=== PATIENT | female | born 1995 | race Caucasian/White ===

== ENCOUNTER 2022-03-22 07:34 | Inpatient (IN) ==
[2022-03-22] MEDS ORDERED: FLUARIX QUADRIVALENT 0.5 ML SYR IM ONE (08:02)
[2022-03-22] MEDS ORDERED: OXYTOCIN 30 UNITS/500 ML BAG IV PRN ×2 (08:05)
[2022-03-22] MEDS ORDERED: LIDOCAINE 1% LOCAL 20 ML VIAL INFIL PRN (08:05)
--- NOTE | 2022-03-22 08:26 | Labor Progress Brief Note ---
Date of Service March 22, 2022 Subjective Patient arrives for IOL as scheduled. 26yo (happens to be a MS3) w/ SIUP @ 40w4d, kinney placed last night. No OB c/o this morning. Plans for epidural. c/b placental lee, chart reviewed, EFW noted. Assessment & Plan (1) Encounter for induction of labor: Plan: Pitocin ordered, GBS neg, COVID swab sent. Epidural on request. Will AROM when appropriate. All questions answered of pt and FOB. Admission and Anticipated Discharge Date Admission Date: March 22, 2022 Physical Exam Genitourinary: FHT Cat [address] quiet vs artifact / without pattern Cvx /-2 Kinney came out with gentle tug, was likely in vaginal vault already. Results & Data ([facility]) Vital Signs (Past 12 Hours) Vital Signs Temp Pulse Resp BP 03/22/22 07:54 97.3 F L 94 H 16 111/69 Coding Level of Care Code None Diagnoses Encounter for induction of labor Z34.90
[2022-03-22] MEDS: LACTATED RINGER'S 1,000 ML IV PRN ×3 (08:30→19:57)
[2022-03-22 08:40] LABS: Hematocrit (blood only) 36.6 % (34.1-44.9); Mean Corpuscular Hgb Conc 35.5 g/dL (32.0-36.0); Mean Corpuscular Volume 90.1 fL (80.0-100.0); Mean Platelet Volume 11.6 fL (9.4-12.3); Platelet Count 154 K/uL (130-400); RDW Coefficient of Variation 12.2 % (11.5-14.5); RDW Standard Deviation 39.8 fL (36.4-46.3); Red Blood Count 4.06 M/uL (3.93-5.22)
[2022-03-22] MEDS ORDERED: fentaNYL citrate 100 MCG/2 ML VIAL ONE (14:15)
[2022-03-22] MEDS ORDERED: ePHEDrine sulfate 50 MG/ML AMP ONE (14:15)
[2022-03-22] MEDS ORDERED: BUPIVACAINE 0.25% 30 ML VIAL ONE (14:16)
[2022-03-22] MEDS ORDERED: LIDOCAINE 2%/EPINEPHRINE 1:200,000 20 ML SDV ONE (14:16)
[2022-03-22] MEDS ORDERED: SODIUM CHLORIDE 0.9% INJ 10 ML VIAL ONE (14:16)
[2022-03-22] MEDS ORDERED: fentaNYL 2MCG/ML ROPIVACAINE 1.25MG/ML 100 ML BAG EPI ONE (14:16)
--- NOTE | 2022-03-22 15:26 | Anesthesiology Consultation ---
Date of Service March 22, 2022 Assessment & Plan ASA ASA2 Proposed Anesthesia Anesthesia Type: Labor Epidural Risk / Benefits Reviewed With: PT / POA / Parent / Guardian, Accepts Plan and Informed Consent Obtained History Height/Weight Height: 5 ft 7 in Weight: 86.183 kg Allergies Allergy/AdvReac Type Severity Reaction Status Date / Time No Known Allergies Allergy Verified 03/19/22 09:11 Medications Home Medications Medication Instructions Recorded Confirmed Last Taken prenat.vits,martínez,[id number]-[id number] 1 tab PO DAILY 10/29/21 03/22/22 03/22/22 breast pump #1 ea 02/12/22 03/19/22 Unknown Breast Pump #1 ea 02/18/22 03/19/22 Unknown Active Medications Generic Name Dose Route Start Last Admin Trade Name Freq PRN Reason Stop Dose Admin Lactated Ringer's 1,000 mls @ 125 mls/hr 03/22/22 08:05 03/22/22 15:30 Lr IV 03/24/22 08:04 999 mls/hr .Q8H PRN Administration L&D Protocol Protocol Oxytocin 30 units in 500 mls @ 13 mls/hr 03/22/22 08:05 03/22/22 14:50 Pitocin IV 03/24/22 08:04 0.78 units/hr .Q24H PRN 13 mls/hr Labor Induction/Augmentation Titration Protocol 0.78 UNITS/HR Ropivacaine 100 ml 03/22/22 15:27 03/22/22 16:01 Fentanyl 2mcg/Ml Ropivacaine 1.25mg/Ml 100 Ml Bag EPI 03/23/22 15:26 100 ml PRN PRN Administration Pain R/T Labor Protocol Exercise / Class Metabolic Activity II 4-5 Yardwork/Stairs/Walk up hill Past Family History Family History (Updated 10/29/21 @ 17:01 by Vivian Jaramillo) Father Hemochromatosis Grandfather (Paternal) Cardiac arrest Past Surgical History Surgical History H/O foot surgery left foot surgery x 2 S/P tonsillectomy Past Anesthesia History No Hx of Anesthesia Complications and No Family Hx of Anesthesia Complications History of PONV No Hx of PONV and No Hx of Motion Sickness Social History Smoking Status: Never smoker Do You Dip or Chew Tobacco: No Hx Alcohol Use: No Hx Substance Use: No substance use type: does not use Review of Systems denies fever/cough/ colds/ chest pain/ SOB/ EDGAR denies EDGAR Physical Exam Vital Signs Last Vital Signs Temp 36.4 C L 03/22/22 14:26 Pulse 84 03/22/22 16:29 Resp 18 03/22/22 14:26 BP 112/67 03/22/22 16:29 Pulse Ox 94 03/22/22 16:29 ENMT Mouth: no TMJ abnormality and no dentition abnormality Thyromental Distance: > or= 3.5 Finger Breadths Mallampati Class: II Neck neck extension not limited Respiratory normal respiratory effort; no respiratory distress Auscultation: lungs clear to auscultation bilaterally Cardiovascular Rate/Rhythm: regular rate and regular rhythm Neurologic moves all extremities Psychiatric Orientation: alert and oriented x 3 Testing Laboratory Results 03/22/22 08:17
[2022-03-22] MEDS ORDERED: ePHEDrine sulfate 50 MG/ML AMP IV PRN (15:27)
[2022-03-22] MEDS ORDERED: diphenhydrAMINE 50 MG/ML VIAL IV PRN (15:27)
[2022-03-22] MEDS ORDERED: ONDANSETRON INJ 2 MG/ML 2 ML VIAL IV PRN (15:27)
[2022-03-22] MEDS ORDERED: NALOXONE HCL 0.4 MG/1 ML VIAL/CARP IV PRN (15:27)
[2022-03-22] MEDS ORDERED: NALBUPHINE HCL INJ 10 MG/ML AMP IV PRN (15:27)
[2022-03-22] MEDS ORDERED: NALOXONE HCL 1 MG in SODIUM CHLORIDE 0.9% 1000ML 1,000 ML IV PRN (15:27)
[2022-03-22] MEDS: fentaNYL 2MCG/ML ROPIVACAINE 1.25MG/ML 100 ML BAG EPI PRN ×2 (16:01→23:10)
--- NOTE | 2022-03-22 20:38 | Labor Progress Brief Note ---
Date of Service IUPC placed earlier as Pitocin was at 19 milliunits/min cervix is now 5 cm contractions are adequate per [place] units over 200 [place] units per 10 minutes progress has been slow but heart rate is category 1 and so we will continue to induce labor Assessment & Plan Admission and Anticipated Discharge Date Admission Date: March 22, 2022 Results & Data ([facility]) Vital Signs (Past 12 Hours) Vital Signs Temp Pulse Resp BP Pulse Ox 03/22/22 20:34 97 03/22/22 20:34 78 03/22/22 20:29 95 03/22/22 20:29 77 03/22/22 20:24 98 03/22/22 20:24 76 03/22/22 20:19 99 03/22/22 20:19 76 03/22/22 20:14 97 03/22/22 20:14 77 03/22/22 20:09 97 03/22/22 20:09 70 03/22/22 20:04 99 03/22/22 20:04 73 03/22/22 20:04 97/55 L 03/22/22 19:59 97 03/22/22 19:59 72 03/22/22 19:54 98 03/22/22 19:54 65 03/22/22 19:49 100 03/22/22 19:49 66 03/22/22 19:47 62 03/22/22 19:47 100/64 03/22/22 19:44 100 03/22/22 19:44 76 03/22/22 19:39 100 03/22/22 19:39 64 03/22/22 19:34 100 03/22/22 19:34 80 03/22/22 19:32 65 03/22/22 19:32 104/66 03/22/22 19:29 99 03/22/22 19:29 67 03/22/22 19:24 99 03/22/22 19:24 74 03/22/22 19:00 18 03/22/22 19:00 98.1 F 18 03/22/22 19:19 93 03/22/22 19:19 65 03/22/22 19:18 92 03/22/22 19:18 78 03/22/22 19:17 73 03/22/22 19:17 107/70 03/22/22 19:14 99 03/22/22 19:14 78 03/22/22 19:09 89 L 03/22/22 19:09 76 03/22/22 19:04 86 L 03/22/22 19:04 65 03/22/22 19:03 64 03/22/22 19:03 104/63 03/22/22 18:59 98 03/22/22 18:59 64 03/22/22 18:56 91 03/22/22 18:56 81 03/22/22 18:54 99 03/22/22 18:54 64 03/22/22 18:54 102/62 03/22/22 18:49 99 03/22/22 18:49 62 03/22/22 18:44 95 03/22/22 18:44 81 03/22/22 18:39 97 03/22/22 18:40 94 03/22/22 18:39 98 H 03/22/22 18:40 83 03/22/22 18:34 99 03/22/22 18:34 81 03/22/22 18:31 80 03/22/22 18:31 102/66 03/22/22 18:29 99 03/22/22 18:29 68 03/22/22 18:24 99 03/22/22 18:24 70 03/22/22 18:19 97 03/22/22 18:19 72 03/22/22 18:18 65 03/22/22 18:18 82/54 L 03/22/22 18:14 98 03/22/22 18:14 89 03/22/22 18:09 91 03/22/22 18:09 91 H 03/22/22 18:04 96 03/22/22 18:04 65 03/22/22 18:02 81 03/22/22 18:02 94/63 L 03/22/22 17:59 96 03/22/22 17:59 66 03/22/22 17:54 96 03/22/22 17:54 70 03/22/22 17:49 97 03/22/22 17:49 84 03/22/22 17:47 78 03/22/22 17:47 92/57 L 03/22/22 17:44 96 03/22/22 17:44 72 03/22/22 17:39 96 03/22/22 17:39 68 03/22/22 17:34 98 03/22/22 17:34 79 03/22/22 17:32 86 03/22/22 17:32 93/59 L 03/22/22 17:29 96 03/22/22 17:29 91 H 03/22/22 17:24 96 03/22/22 17:24 94 H 03/22/22 17:19 96 03/22/22 17:19 73 03/22/22 17:17 78 03/22/22 17:17 92/52 L 03/22/22 17:14 95 03/22/22 17:14 93 H 03/22/22 17:12 83 03/22/22 17:12 106/63 03/22/22 17:09 96 03/22/22 17:09 82 03/22/22 17:04 99 03/22/22 17:04 86 03/22/22 16:59 97 03/22/22 16:59 100 H 03/22/22 16:56 94 03/22/22 16:56 85 03/22/22 16:54 96 03/22/22 16:54 98 H 03/22/22 16:49 97 03/22/22 16:49 96 H 03/22/22 16:45 85 03/22/22 16:45 109/57 L 03/22/22 16:44 97 03/22/22 16:44 85 03/22/22 16:39 96 03/22/22 16:39 82 03/22/22 16:40 81 03/22/22 16:40 109/71 03/22/22 16:36 92 03/22/22 16:36 85 03/22/22 16:34 98 03/22/22 16:34 80 03/22/22 16:34 78 03/22/22 16:34 106/71 03/22/22 16:29 94 03/22/22 16:29 84 03/22/22 16:29 112/67 03/22/22 16:24 96 03/22/22 16:24 79 03/22/22 16:25 82 03/22/22 16:25 110/70 03/22/22 16:19 97 03/22/22 16:19 79 03/22/22 16:19 103/65 03/22/22 16:14 98 03/22/22 16:14 84 03/22/22 16:14 105/66 03/22/22 16:09 100 03/22/22 16:09 86 03/22/22 16:08 78 03/22/22 16:08 111/65 03/22/22 16:07 93 03/22/22 16:07 89 03/22/22 16:04 100 03/22/22 16:04 81 03/22/22 16:03 90 03/22/22 16:03 109/61 03/22/22 16:02 84 03/22/22 16:02 116/67 03/22/22 15:59 100 03/22/22 15:59 74 03/22/22 15:59 99/56 L 03/22/22 15:58 88 03/22/22 15:58 99/65 L 03/22/22 15:52 100 03/22/22 15:52 76 03/22/22 15:51 91 03/22/22 15:51 77 03/22/22 15:51 114/70 03/22/22 15:49 92 H 03/22/22 15:49 116/73 03/22/22 15:47 90 03/22/22 15:47 118/74 03/22/22 15:46 100 03/22/22 15:46 79 03/22/22 15:45 95 H 03/22/22 15:45 120/75 03/22/22 15:42 94 03/22/22 15:42 102 H 03/22/22 15:41 96 03/22/22 15:41 88 03/22/22 14:26 93 H 03/22/22 14:26 97.5 F L 18 108/61 03/22/22 12:50 95 H 03/22/22 12:50 97.3 F L 16 100/69 03/22/22 09:46 77 03/22/22 09:46 91/55 L Coding Level of Care Code None
--- NOTE | 2022-03-23 00:15 | Labor Progress Brief Note ---
Date of Service March 23, 2022 Cervix is sensitive still with same at most 5 cm perhaps somewhat thinner and softer her contractions are adequate with an IUPC her [place] units and a 10- minute session are 270 her heart rate is category 1 I did review with the patient and her that there has been very slow progress and somewhat concerned for the possibility of failure to progress at this stage he would still like to proceed as the baby is healthy and she agrees I did offer a at this stage but I think it is very safe to continue at this stage continue with induction of labor with Pitocin using the IUPC regarding we will reassess the patient in a few hours Assessment & Plan Admission and Anticipated Discharge Date Admission Date: March 22, 2022 Results & Data ([facility]) Vital Signs (Past 12 Hours) Vital Signs Temp Pulse Resp BP Pulse Ox 03/23/22 00:09 115 H 95 03/23/22 00:04 76 98 03/23/22 00:02 111 H 83/53 L 03/22/22 23:59 96 03/22/22 23:59 104 H 03/22/22 23:54 95 03/22/22 23:54 71 03/22/22 23:49 97 03/22/22 23:49 72 03/22/22 23:48 82 03/22/22 23:48 87/49 L 03/22/22 23:45 85 L 03/22/22 23:45 111 H 03/22/22 23:44 96 03/22/22 23:44 84 03/22/22 23:39 96 03/22/22 23:39 74 03/22/22 23:34 97 03/22/22 23:34 75 03/22/22 23:33 70 03/22/22 23:33 105/57 L 03/22/22 23:29 98 03/22/22 23:29 77 03/22/22 23:24 98 03/22/22 23:24 84 03/22/22 23:19 96 03/22/22 23:19 68 03/22/22 23:17 76 03/22/22 23:17 103/61 03/22/22 23:14 97 03/22/22 23:14 72 03/22/22 23:09 98 03/22/22 23:09 75 10/03/22 23:04 97 03/22/22 23:04 85 03/22/22 23:00 18 03/22/22 23:00 99.0 F 18 03/22/22 23:02 77 03/22/22 23:02 103/60 03/22/22 22:59 98 03/22/22 22:59 82 03/22/22 22:54 96 03/22/22 22:54 70 03/22/22 22:49 96 03/22/22 22:49 74 03/22/22 22:44 99 03/22/22 22:44 80 03/22/22 22:39 97 03/22/22 22:39 75 03/22/22 22:34 98 03/22/22 22:34 78 03/22/22 22:29 96 03/22/22 22:29 79 03/22/22 22:24 95 03/22/22 22:24 76 03/22/22 22:19 98 03/22/22 22:19 81 03/22/22 22:17 75 03/22/22 22:17 92/61 L 03/22/22 22:14 97 03/22/22 22:14 69 03/22/22 22:09 98 03/22/22 22:09 82 03/22/22 22:06 75 03/22/22 22:06 106/65 03/22/22 22:04 99 03/22/22 22:04 104 H 03/22/22 21:59 98 03/22/22 21:59 71 03/22/22 21:54 99 03/22/22 21:54 84 03/22/22 19:30 18 03/22/22 19:30 18 03/22/22 20:00 18 03/22/22 20:00 18 03/22/22 20:30 18 03/22/22 20:30 18 03/22/22 21:49 97 03/22/22 21:49 82 03/22/22 21:00 18 03/22/22 21:00 18 03/22/22 21:44 95 03/22/22 21:44 80 03/22/22 21:39 95 03/22/22 21:39 92 H 03/22/22 21:30 18 03/22/22 21:30 98.4 F 18 03/22/22 21:34 97 03/22/22 21:34 83 03/22/22 21:32 88 03/22/22 21:32 88/50 L 03/22/22 21:29 97 03/22/22 21:29 94 H 03/22/22 21:24 99 03/22/22 21:24 69 03/22/22 21:19 99 03/22/22 21:19 71 03/22/22 21:18 71 03/22/22 21:18 104/61 03/22/22 21:14 100 03/22/22 21:14 73 03/22/22 21:09 100 03/22/22 21:09 70 03/22/22 21:04 99 03/22/22 21:04 82 03/22/22 21:02 81 03/22/22 21:02 110/69 03/22/22 20:59 99 03/22/22 20:59 81 03/22/22 20:54 100 03/22/22 20:54 72 03/22/22 20:49 96 03/22/22 20:49 85 03/22/22 20:44 97 03/22/22 20:44 76 03/22/22 20:43 88 L 03/22/22 20:43 84 03/22/22 20:39 100 03/22/22 20:39 89 03/22/22 20:34 97 03/22/22 20:34 78 03/22/22 20:29 95 03/22/22 20:29 77 03/22/22 20:24 98 03/22/22 20:24 76 03/22/22 20:19 99 03/22/22 20:19 76 03/22/22 20:14 97 03/22/22 20:14 77 03/22/22 20:09 97 03/22/22 20:09 70 03/22/22 20:04 99 03/22/22 20:04 73 03/22/22 20:04 97/55 L 03/22/22 19:59 97 03/22/22 19:59 72 03/22/22 19:54 98 03/22/22 19:54 65 03/22/22 19:49 100 03/22/22 19:49 66 03/22/22 19:47 62 03/22/22 19:47 100/64 03/22/22 19:44 100 03/22/22 19:44 76 03/22/22 19:39 100 03/22/22 19:39 64 03/22/22 19:34 100 03/22/22 19:34 80 03/22/22 19:32 65 03/22/22 19:32 104/66 03/22/22 19:29 99 03/22/22 19:29 67 03/22/22 19:24 99 03/22/22 19:24 74 03/22/22 19:00 18 03/22/22 19:00 98.1 F 18 03/22/22 19:19 93 03/22/22 19:19 65 03/22/22 19:18 92 03/22/22 19:18 78 03/22/22 19:17 73 03/22/22 19:17 107/70 03/22/22 19:14 99 03/22/22 19:14 78 03/22/22 19:09 89 L 03/22/22 19:09 76 03/22/22 19:04 86 L 03/22/22 19:04 65 03/22/22 19:03 64 03/22/22 19:03 104/63 03/22/22 18:59 98 03/22/22 18:59 64 03/22/22 18:56 91 03/22/22 18:56 81 03/22/22 18:54 99 03/22/22 18:54 64 03/22/22 18:54 102/62 03/22/22 18:49 99 03/22/22 18:49 62 03/22/22 18:44 95 03/22/22 18:44 81 03/22/22 18:39 97 03/22/22 18:40 94 03/22/22 18:39 98 H 03/22/22 18:40 83 03/22/22 18:34 99 03/22/22 18:34 81 03/22/22 18:31 80 03/22/22 18:31 102/66 03/22/22 18:29 99 03/22/22 18:29 68 03/22/22 18:24 99 03/22/22 18:24 70 03/22/22 18:19 97 03/22/22 18:19 72 03/22/22 18:18 65 03/22/22 18:18 82/54 L 03/22/22 18:14 98 03/22/22 18:14 89 03/22/22 18:09 91 03/22/22 18:09 91 H 03/22/22 18:04 96 03/22/22 18:04 65 03/22/22 18:02 81 03/22/22 18:02 94/63 L 03/22/22 17:59 96 03/22/22 17:59 66 03/22/22 17:54 96 03/22/22 17:54 70 03/22/22 17:49 97 03/22/22 17:49 84 03/22/22 17:47 78 03/22/22 17:47 92/57 L 03/22/22 17:44 96 03/22/22 17:44 72 03/22/22 17:39 96 03/22/22 17:39 68 03/22/22 17:34 98 03/22/22 17:34 79 03/22/22 17:32 86 03/22/22 17:32 93/59 L 03/22/22 17:29 96 03/22/22 17:29 91 H 03/22/22 17:24 96 03/22/22 17:24 94 H 03/22/22 17:19 96 03/22/22 17:19 73 03/22/22 17:17 78 03/22/22 17:17 92/52 L 03/22/22 17:14 95 03/22/22 17:14 93 H 03/22/22 17:12 83 03/22/22 17:12 106/63 03/22/22 17:09 96 03/22/22 17:09 82 03/22/22 17:04 99 03/22/22 17:04 86 03/22/22 16:59 97 03/22/22 16:59 100 H 03/22/22 16:56 94 03/22/22 16:56 85 03/22/22 16:54 96 03/22/22 16:54 98 H 03/22/22 16:49 97 03/22/22 16:49 96 H 03/22/22 16:45 85 03/22/22 16:45 109/57 L 03/22/22 16:44 97 03/22/22 16:44 85 03/22/22 16:39 96 03/22/22 16:39 82 03/22/22 16:40 81 03/22/22 16:40 109/71 03/22/22 16:36 92 03/22/22 16:36 85 03/22/22 16:34 98 03/22/22 16:34 80 03/22/22 16:34 78 03/22/22 16:34 106/71 03/22/22 16:29 94 03/22/22 16:29 84 03/22/22 16:29 112/67 03/22/22 16:24 96 03/22/22 16:24 79 03/22/22 16:25 82 03/22/22 16:25 110/70 03/22/22 16:19 97 03/22/22 16:19 79 03/22/22 16:19 103/65 03/22/22 16:14 98 03/22/22 16:14 84 03/22/22 16:14 105/66 03/22/22 16:09 100 03/22/22 16:09 86 03/22/22 16:08 78 03/22/22 16:08 111/65 03/22/22 16:07 93 03/22/22 16:07 89 03/22/22 16:04 100 03/22/22 16:04 81 03/22/22 16:03 90 03/22/22 16:03 109/61 03/22/22 16:02 84 03/22/22 16:02 116/67 03/22/22 15:59 100 03/22/22 15:59 74 03/22/22 15:59 99/56 L 03/22/22 15:58 88 03/22/22 15:58 99/65 L 03/22/22 15:52 100 03/22/22 15:52 76 03/22/22 15:51 91 03/22/22 15:51 77 03/22/22 15:51 114/70 03/22/22 15:49 92 H 03/22/22 15:49 116/73 03/22/22 15:47 90 03/22/22 15:47 118/74 03/22/22 15:46 100 03/22/22 15:46 79 03/22/22 15:45 95 H 03/22/22 15:45 120/75 03/22/22 15:42 94 03/22/22 15:42 102 H 03/22/22 15:41 96 03/22/22 15:41 88 03/22/22 14:26 93 H 03/22/22 14:26 97.5 F L 18 108/61 03/22/22 12:50 95 H 03/22/22 12:50 97.3 F L 16 100/69 Coding Level of Care Code None
[2022-03-23] MEDS ORDERED: NURSING L&D Epidural Breakthrough Pain Update ONE (01:54)
[2022-03-23] MEDS ORDERED: ROPIVACAINE 0.5% 5 MG/ML 30 ML VIAL ONE (02:05)
[2022-03-23] MEDS ORDERED: LIDOCAINE 2%/EPINEPHRINE 1:200,000 20 ML SDV ONE (02:05)
[2022-03-23] MEDS ORDERED: fentaNYL citrate 100 MCG/2 ML VIAL ONE ×2 (02:05→06:14)
--- NOTE | 2022-03-23 02:18 | Communication Note ---
Date of Service: March 23, 2022 pt c/o back pain. pt given bolus of 100 mcg fentanyl, 2 cc 2% lido w/epi, 2 cc of 0.5% ropivicaine. vss
[2022-03-23] MEDS: LACTATED RINGER'S 1,000 ML IV PRN (03:37)
[2022-03-23] MEDS: fentaNYL 2MCG/ML ROPIVACAINE 1.25MG/ML 100 ML BAG EPI PRN (04:50)
--- NOTE | 2022-03-23 06:22 | Labor Progress Brief Note ---
Date of Service March 23, 2022 Patient has now reached fully dilated I do believe the baby is in occiput posterior position. This is significant progress from her last check but she is now uncomfortable we dose her epidural heart rate is category 1 very reassuring Assessment & Plan Admission and Anticipated Discharge Date Admission Date: March 22, 2022 Results & Data ([facility]) Vital Signs (Past 12 Hours) Vital Signs Temp Pulse Resp BP Pulse Ox 03/23/22 03:01 99.5 F 03/23/22 06:19 78 114/72 98 03/23/22 06:17 71 110/70 03/23/22 06:14 89 97 03/23/22 06:09 73 95 03/23/22 06:04 79 98 03/23/22 06:03 87 89 L 03/23/22 06:02 82 107/74 03/23/22 05:59 76 98 03/23/22 05:54 76 96 03/23/22 05:49 76 98 03/23/22 05:47 85 110/75 03/23/22 05:44 85 97 03/23/22 05:39 87 97 03/23/22 05:34 83 99 03/23/22 05:32 82 106/67 03/23/22 05:29 99.0 F 83 20 97 03/23/22 05:24 81 96 03/23/22 05:19 80 100 03/23/22 05:17 83 126/59 L 03/23/22 05:14 105 H 100 03/23/22 05:09 87 97 03/23/22 05:04 92 H 100 03/23/22 05:00 18 03/23/22 05:00 99.9 F H 18 03/23/22 05:02 92 H 89/53 L 81 L 03/23/22 04:59 94 H 100 03/23/22 04:57 94 H 84 L 03/23/22 04:54 92 H 98 03/23/22 04:49 88 100 03/23/22 04:47 78 91/55 L 03/23/22 04:44 106 H 96 03/23/22 04:39 105 H 97 03/23/22 04:30 18 03/23/22 04:30 18 03/23/22 04:34 109 H 96 03/23/22 04:32 96 H 91/54 L 03/23/22 04:29 94 H 96 03/23/22 04:24 70 94 03/23/22 04:19 83 94 03/23/22 04:17 88 88/50 L 03/23/22 04:14 99 H 96 03/23/22 04:09 103 H 96 03/23/22 04:04 115 H 97 03/23/22 03:59 98 H 96 03/23/22 03:54 91 H 95 03/23/22 03:49 125 H 96 03/23/22 03:48 92 H 107/67 03/23/22 03:44 83 98 03/23/22 03:30 18 03/23/22 03:30 18 03/23/22 03:39 102 H 98 03/23/22 03:34 114 H 99 03/23/22 03:33 114 H 102/58 L 03/23/22 03:29 89 98 03/23/22 03:24 80 98 03/23/22 03:19 86 97 03/23/22 03:18 86 108/59 L 03/23/22 03:14 81 96 03/23/22 03:09 79 98 03/23/22 03:04 96 H 99 03/23/22 03:01 87 109/55 L 03/23/22 02:59 89 93 03/23/22 02:54 66 95 03/23/22 02:49 73 95 03/23/22 02:44 79 98 03/23/22 02:39 69 95 03/23/22 02:34 75 96 03/23/22 02:29 82 96 03/23/22 02:24 68 97 03/23/22 02:00 18 03/23/22 02:00 18 03/23/22 02:19 106 H 96 03/23/22 02:17 92 H 94/58 L 03/23/22 02:14 94 H 98 03/23/22 02:11 94 H 98/66 L 03/23/22 02:09 115 H 97 03/23/22 02:04 93 H 93/52 L 98 03/23/22 01:59 82 96 03/23/22 01:54 77 97 03/23/22 01:49 89 98 03/23/22 01:48 74 102/59 L 03/23/22 01:44 74 96 03/23/22 01:30 18 03/23/22 01:30 18 03/23/22 01:39 71 94 03/23/22 01:34 62 96 03/23/22 01:32 62 94/59 L 03/23/22 01:29 66 97 03/23/22 01:24 62 95 03/23/22 01:19 65 96 03/23/22 01:14 71 96 03/23/22 01:05 18 03/23/22 01:05 98.4 F 18 03/23/22 01:09 94 H 95 03/23/22 01:04 74 100 03/23/22 01:02 75 110/71 03/23/22 00:59 80 99 03/23/22 00:54 63 96 03/23/22 00:49 74 98 03/23/22 00:44 73 96 03/23/22 00:39 89 97 03/23/22 00:34 103 H 97 03/23/22 00:29 85 96 03/23/22 00:24 93 H 96 03/23/22 00:19 95 H 93 03/23/22 00:17 88 103/64 03/23/22 00:14 83 93 03/23/22 00:09 115 H 95 03/23/22 00:04 76 98 03/23/22 00:02 111 H 83/53 L 03/22/22 23:59 96 03/22/22 23:59 104 H 03/22/22 23:54 95 03/22/22 23:54 71 03/22/22 23:49 97 03/22/22 23:49 72 03/22/22 23:48 82 03/22/22 23:48 87/49 L 03/22/22 23:45 85 L 03/22/22 23:45 111 H 03/22/22 23:44 96 03/22/22 23:44 84 03/22/22 23:39 96 03/22/22 23:39 74 03/22/22 23:34 97 03/22/22 23:34 75 03/22/22 23:33 70 03/22/22 23:33 105/57 L 03/22/22 23:29 98 03/22/22 23:29 77 03/22/22 23:24 98 03/22/22 23:24 84 03/22/22 23:19 96 03/22/22 23:19 68 03/22/22 23:17 76 03/22/22 23:17 103/61 03/22/22 23:14 97 03/22/22 23:14 72 03/22/22 23:09 98 03/22/22 23:09 75 03/22/22 23:04 97 03/22/22 23:04 85 03/22/22 23:00 18 03/22/22 23:00 99.0 F 18 03/22/22 23:02 77 03/22/22 23:02 103/60 03/22/22 22:59 98 03/22/22 22:59 82 03/22/22 22:54 96 03/22/22 22:54 70 03/22/22 22:49 96 03/22/22 22:49 74 03/22/22 22:44 99 03/22/22 22:44 80 03/22/22 22:39 97 03/22/22 22:39 75 03/22/22 22:34 98 03/22/22 22:34 78 03/22/22 22:29 96 03/22/22 22:29 79 03/22/22 22:24 95 03/22/22 22:24 76 03/22/22 22:19 98 03/22/22 22:19 81 03/22/22 22:17 75 03/22/22 22:17 92/61 L 03/22/22 22:14 97 03/22/22 22:14 69 03/22/22 22:09 98 03/22/22 22:09 82 03/22/22 22:06 75 03/22/22 22:06 106/65 03/22/22 22:04 99 03/22/22 22:04 104 H 03/22/22 21:59 98 03/22/22 21:59 71 03/22/22 21:54 99 03/22/22 21:54 84 03/22/22 19:30 18 03/22/22 19:30 18 03/22/22 20:00 18 03/22/22 20:00 18 03/22/22 20:30 18 03/22/22 20:30 18 03/22/22 21:49 97 03/22/22 21:49 82 03/22/22 21:00 18 03/22/22 21:00 18 03/22/22 21:44 95 03/22/22 21:44 80 03/22/22 21:39 95 03/22/22 21:39 92 H 03/22/22 21:30 18 03/22/22 21:30 98.4 F 18 03/22/22 21:34 97 03/22/22 21:34 83 03/22/22 21:32 88 03/22/22 21:32 88/50 L 03/22/22 21:29 97 03/22/22 21:29 94 H 03/22/22 21:24 99 03/22/22 21:24 69 03/22/22 21:19 99 03/22/22 21:19 71 03/22/22 21:18 71 03/22/22 21:18 104/61 03/22/22 21:14 100 03/22/22 21:14 73 03/22/22 21:09 100 03/22/22 21:09 70 03/22/22 21:04 99 03/22/22 21:04 82 03/22/22 21:02 81 03/22/22 21:02 110/69 03/22/22 20:59 99 03/22/22 20:59 81 03/22/22 20:54 100 03/22/22 20:54 72 03/22/22 20:49 96 03/22/22 20:49 85 03/22/22 20:44 97 03/22/22 20:44 76 03/22/22 20:43 88 L 03/22/22 20:43 84 03/22/22 20:39 100 03/22/22 20:39 89 03/22/22 20:34 97 03/22/22 20:34 78 03/22/22 20:29 95 03/22/22 20:29 77 03/22/22 20:24 98 03/22/22 20:24 76 03/22/22 20:19 99 03/22/22 20:19 76 03/22/22 20:14 97 03/22/22 20:14 77 03/22/22 20:09 97 03/22/22 20:09 70 03/22/22 20:04 99 03/22/22 20:04 73 03/22/22 20:04 97/55 L 03/22/22 19:59 97 03/22/22 19:59 72 03/22/22 19:54 98 03/22/22 19:54 65 03/22/22 19:49 100 03/22/22 19:49 66 03/22/22 19:47 62 03/22/22 19:47 100/64 03/22/22 19:44 100 03/22/22 19:44 76 03/22/22 19:39 100 03/22/22 19:39 64 03/22/22 19:34 100 03/22/22 19:34 80 03/22/22 19:32 65 03/22/22 19:32 104/66 03/22/22 19:29 99 03/22/22 19:29 67 03/22/22 19:24 99 03/22/22 19:24 74 03/22/22 19:00 18 03/22/22 19:00 98.1 F 18 03/22/22 19:19 93 03/22/22 19:19 65 03/22/22 19:18 92 03/22/22 19:18 78 03/22/22 19:17 73 03/22/22 19:17 107/70 03/22/22 19:14 99 03/22/22 19:14 78 03/22/22 19:09 89 L 03/22/22 19:09 76 03/22/22 19:04 86 L 03/22/22 19:04 65 03/22/22 19:03 64 03/22/22 19:03 104/63 03/22/22 18:59 98 03/22/22 18:59 64 03/22/22 18:56 91 03/22/22 18:56 81 03/22/22 18:54 99 03/22/22 18:54 64 03/22/22 18:54 102/62 03/22/22 18:49 99 03/22/22 18:49 62 03/22/22 18:44 95 03/22/22 18:44 81 03/22/22 18:39 97 03/22/22 18:40 94 03/22/22 18:39 98 H 03/22/22 18:40 83 03/22/22 18:34 99 03/22/22 18:34 81 03/22/22 18:31 80 03/22/22 18:31 102/66 03/22/22 18:29 99 03/22/22 18:29 68 03/22/22 18:24 99 03/22/22 18:24 70 Coding Level of Care Code None
--- NOTE | 2022-03-23 06:36 | Communication Note ---
Date of Service: March 23, 2022 baby op. pt c/o back pain. 100 mcg fentanyl, 3 cc of 0.5% ropivicaine, and 3 cc 2% lido w/ epi
--- NOTE | 2022-03-23 07:26 | Delivery Summary ---
Vaginal Delivery Summary Date of Service March 23, 2022 Vaginal Delivery Summary Spontaneous vaginal delivery the patient pushed effectively delivering a baby in occiput anterior mouth and then nares were suctioned fluid was clear no nuchal cord gentle traction on the baby with no excessive force used easy delivery live vigorous male cord clamped and cut cord gases not obtained cord blood obtained placenta removed with gentle traction IV Pitocin started uterine tone improved small second-degree tear repaired with 3-0 Vicryl sponge instrument counts correct estimated blood loss 250 mL
[2022-03-23] MEDS ORDERED: BENZOCAINE 20% AER SPR 82.5 GM CAN EXT PRN (07:53)
[2022-03-23] MEDS ORDERED: oxyCODONE/ACETAMINOPHEN 5mg/325mg TAB PO PRN (07:53)
[2022-03-23] MEDS ORDERED: OXYTOCIN 30 UNITS/500 ML BAG IV PRN (07:53)
[2022-03-23] MEDS ORDERED: bisacodyL 10 MG SUPP PR PRN (07:53)
[2022-03-23] MEDS ORDERED: DIPHTHERIA/TETANUS/PERTUSSIS 0.5 ML SYR/VIAL IM ONE (07:53)
[2022-03-23] MEDS ORDERED: ACETAMINOPHEN 325 MG TAB PO PRN (07:53)
[2022-03-23] MEDS ORDERED: HYDROCORTISONE ACETATE 25 MG SUPP PR PRN (07:53)
--- NOTE | 2022-03-23 08:19 | Anesthesia Procedure Note ---
Date of Service March 23, 2022 Anesthesia Post Epidural Note Vital Signs Vital Signs: Temp Pulse Resp BP Pulse Ox 37.2 C 105 H 20 97/50 L 77 L 03/23/22 05:29 03/23/22 08:05 03/23/22 06:30 03/23/22 08:05 03/23/22 07:08 Pain Intensity Lower Medial Abdomen: Pain Intensity: 5 Lower Medial Back: Pain Intensity: 5 Notes Mental Status: alert / awake / arousable and participated in evaluation Nausea / Vomiting: adequately controlled Pain: adequately controlled Airway Patency, RR, SpO2: stable & adequate BP & HR: stable & adequate Hydration State: stable & adequate Neuraxial Anesthesia: was administered and sensory block is resolving Anesthetic Complications: no major complications apparent and Pt Satisfied with anesthetic care Epidural: Removed without complications and With tip intact
[2022-03-23] MEDS: IBUPROFEN 600 MG TAB PO PRN ×3 (10:20→19:47)
[2022-03-23] MEDS: DOCUSATE SODIUM 100 MG CAP PO SCH ×2 (11:36→19:47)
[2022-03-23] MEDS: PRENATAL VITAMIN 1 TAB PO SCH (11:37)
--- NOTE | 2022-03-24 05:50 | Obstetrical Progress Note ---
Date of Service <Kirsten Damian DO Lissa - Last Filed: 03/24/22 06:51> March 24, 2022 Assessment & Plan <Kirsten GutiérrezDO carlitos - Last Filed: 03/24/22 06:51> (1) care following vaginal delivery: Patient is PPD 1 s/p and doing well. - Eating well, voiding well, ambulating well - Vitals reviewed and within normal limits - Pain well controlled with analgesics - OOB, ambulation, diet progression as tolerated - Blood type: O+, GBS neg, rubella immune - Plan to discharge today - After discharge, 6 [address] up [address] Luke <Ana Santana MD - Last Filed: 03/24/22 07:19> (1) care following vaginal delivery: Subjective <Kirsten GutiérrezDO carlitos - Last Filed: 03/24/22 06:51> Patient is a 26 yo female who is now PPD #1 following spontaneous vaginal delivery at 40+4 weeks. Reports feeling well this morning. She denies abdominal cramping and 0/10 pain well managed on analgesics. Voiding without issue. Tolerating regular meals overnight and able to ambulate some. She has passed gas and no bowel movements. Persistent lochia with some improvement this morning. Currently breast feeding. Review of Systems Denies fever, chills, sweats. Denies SOB, difficulty breathing, chest pain, palpitations, and chest pressure. Denies breast pain. Denies dysuria. Denies headache or changes in vision. Physical Exam <Kirsten ArzateLaura Alcaraz DO - Last Filed: 03/24/22 06:51> General: Alert and oriented. No acute distress. CV: Regular rate and rhythm. No murmurs. Respiratory: CTA bilaterally. No rhonchi, wheezes, or crackles. No increased work of breathing. Abdomen: Positive bowel sounds. Soft, nontender, non distended. Uterus: Fundus firm and palpable 3 cm below the umbilicus. Lower extremities: No LE edema. No deep calf pain. Wellington's negative bilaterally. Results & Data ([facility]) <Kirsten Nati Alcaraz DO - Last Filed: 03/24/22 06:51> Vital Signs (Past 12 Hours) Vital Signs Temp Pulse Resp BP Pulse Ox O2 Del Method 03/24/22 04:00 36.8 C 74 16 105/65 98 Room Air 03/23/22 23:45 36.8 C 72 16 94/58 L 98 Room Air 03/23/22 20:32 36.7 C 79 16 98/60 L 97 Room Air <Ana Santana MD - Last Filed: 03/24/22 07:19> Co-Signing Physician Notes Resident Physician Supervision Note: I interviewed and examined the patient. Discussed with Dr. Alcaraz and agree with findings and plan as documented in the note. Any exceptions or clarifications are listed here: PP1 s/p , doing well. VSS, exam benign and wnl. Desires d/c home today, stable to do so Documented By: Ana Santana MD Resident Activity Tracking <Kirsten Alcaraz DO - Last Filed: 03/24/22 06:51> Resident Involvement: Resident Care Provided Care Provided: OB Delivery
[2022-03-24 06:51] LABS: Hematocrit (blood only) 31.5 % (34.1-44.9); Mean Corpuscular Hemoglobin 32.1 pg (25.0-34.0); Mean Corpuscular Hgb Conc 34.9 g/dL (32.0-36.0); Mean Corpuscular Volume 91.8 fL (80.0-100.0); Mean Platelet Volume 11.6 fL (9.4-12.3); Platelet Count 142 K/uL (130-400); RDW Coefficient of Variation 12.5 % (11.5-14.5); RDW Standard Deviation 41.2 fL (36.4-46.3); Red Blood Count 3.43 M/uL (3.93-5.22); White Blood Count 16.64 K/ul (4.8-10.8)
[2022-03-24] MEDS: DOCUSATE SODIUM 100 MG CAP PO SCH (07:41)
[2022-03-24] MEDS: PRENATAL VITAMIN 1 TAB PO SCH (07:41)
[2022-03-24] MEDS ORDERED: bisacodyL 5 MG TABEC PO SCH (20:00)
== END 2022-03-24 19:05 | disposition home or self-care (01) | DRG 807 ==
LOC: 4S1 07:34 → 4E2 03-23 11:15

== ENCOUNTER 2024-03-14 07:50 | Inpatient (IN) ==
[2024-03-14] MEDS ORDERED: LIDOCAINE 1% LOCAL 20 ML VIAL INFIL PRN (07:59)
[2024-03-14] MEDS ORDERED: OXYTOCIN 30 UNITS/NSS 30 UNITS/500 ML BAG IV PRN ×2 (07:59→17:36)
[2024-03-14 08:40] LABS: Hematocrit (blood only) 36.2 % (37.0-47.0); Hemoglobin 12.7 g/dl (12.0-16.0); Mean Corpuscular Hemoglobin 30.8 pg (25.0-34.0); Mean Corpuscular Hgb Conc 35.1 g/dL (32.0-36.0); Mean Corpuscular Volume 87.9 fL (80.0-100.0); Mean Platelet Volume 11.6 fL (9.4-12.4); Platelet Count 143 K/uL (130-400); RDW Coefficient of Variation 12.5 % (11.5-14.5); RDW Standard Deviation 39.9 fL (36.4-46.3); Red Blood Count 4.12 M/uL (4.20-5.40); White Blood Count 13.51 K/ul (4.8-10.8)
[2024-03-14] MEDS: OXYTOCIN 30 UNITS/NSS 30 UNITS/500 ML BAG IV PRN (09:02)
[2024-03-14] MEDS: LACTATED RINGER'S 1,000 ML IV PRN (09:04)
--- NOTE | 2024-03-14 09:04 | History & Physical Report ---
Date of Service March 14, 2024 Assessment & Plan (1) Post-dates : Plan: 28yo at 41w3d presents for IOL for late term . 1. Cat 1 tacing 2. Pitocin per regular protocol. Will AROM when appropriate 3. GBS positive - PCN 4. Vitals WNL (2) Group B streptococcal infection during : (3) Encounter for supervision of normal in multigravida: Admission and Anticipated Discharge Date Admission Date: March 14, 2024 History of Present Illness Primary Care Provider: Neo Diaz MD 28yo at 41w3d presents for IOL for late term . complicated by GBS. Hx of uncomplicated . Lab Results OB Labs: Blood Type O Positive 07/26/23 Antibody Screen NEGATIVE 07/26/23 Hgb 12.4 g/dl (12.0-16.0) 12/16/23 Hct 36.3 % (37.0-47.0) L 12/16/23 MCV 87.3 fL (80.0-100.0) 07/26/23 Plt Count 211 K/uL (130-400) 07/26/23 Rubella IgG Antibody Immune (Immune) 07/26/23 RPR Nonreactive (Nonreactive) 07/26/23 Hep Bs Antigen NON-REACTIVE (NON-REACTIVE) 07/26/23 Hepatitis C Ab (EIA) NON-REACTIVE (NON-REACTIVE) 07/26/23 HIV (1&2) Ag & Ab Conf NON-REACTIVE (NON-REACTIVE) 07/26/23 Glucose 1 Hr 50 gm 98 mg/dl (70-130) 12/16/23 OB Optional Labs: Chlamydia trachomatis RNA Not Detected (NotDetected) 07/26/23 Neisseria gonorrhoeae RNA Not Detected (NotDetected) 07/26/23 Labs Reviewed: cfdna-low risk--mln Allergies Allergy/AdvReac Type Severity Reaction Status Date / Time No Known Allergies Allergy Verified 03/13/24 19:43 Home Medications Medication Instructions Recorded Confirmed Type prenat.vits,martínez,siu-yxoe-lxrux 1 tab PO DAILY 10/29/21 03/14/24 History Patient History Medical History (Updated 03/14/24 @ 09:01 by Leonel Pearce MD) Varicella vaccine care following vaginal delivery Unfavorable cervix in term Placental abnormality Supervision of normal intrauterine in primigravida Surgical History H/O foot surgery S/P tonsillectomy Family History Father Hemochromatosis Grandfather (Paternal) Cardiac arrest Myocardial infarction Denies family history of Ovarian cancer Prostate cancer Breast cancer Colorectal cancer Social History (Updated 07/22/23 @ 09:51 by Brielle Ojeda, IVY) Smoking Status: Never smoker Second Hand Exposure: No; Do You Dip or Chew Tobacco: No; Hx Alcohol Use: No Hx Substance Use: No Preferred Language: Tongan Communication Ability: Effective Back Seam Stitcher Required: No Beliefs That Will Affect Care: None marital status: marital status details: Byron (28) [phone] Current Living Situation: Spouse Current Living Situation Comment: Lives with , son, no pets current occupational status: unemployed and student current occupation: Med student for [employer] Other Information That Helps Us Care for You: No Feels Safe at Home: Yes Safety Concerns: Feels Safe At This Time Assistive Devices: None Physical Exam Genitourinary: OB Exam Abdomen: + vertex Manual OB Exam: + cervical dilation (4.5), + cervical effacement 70% and + station -2 OB Exam Monitor Tracing: + external FHT monitor used, + external uterine monitor used, + category I and + normal FHT variability; no early decelerations present, no late decelerations present and no variable decelerations Results & Data Vital Signs (Past 12 Hours) Vital Signs Temp Pulse Resp BP 03/14/24 08:09 93 H 101/57 L 03/14/24 08:03 36.9 C 20 Coding Level of Care Code None Diagnoses Post-term , 40-42 weeks of gestation O48.0 Post-term type: 40-42 weeks gestation Group B streptococcal infection during O98.819; B95.1 Encounter for supervision of normal in multigravida Z34.80 (1) Post-dates Post-term type: 40-42 weeks gestation Qualified Code(s): O48.0 - Post-term
[2024-03-14] MEDS: PENICILLIN GK 6 MU in DEXTROSE 5% 250 ML IV STA (09:05)
[2024-03-14] MEDS: fentANYL 2 MCG/ML BUPIVacaine 0.125%-NSS 100ML BAG ONE (12:10)
[2024-03-14] MEDS: LIDOCAINE 2%/EPINEPHRINE 1:200,000 20 ML PF ONE (12:15)
--- NOTE | 2024-03-14 12:26 | Anesthesiology Consultation ---
Date of Service March 14, 2024 Assessment & Plan Chart Review Chart Review: Acceptable Risk for Labor Epidural Consults Requested none History Height/Weight Height: 5 ft 7 in Weight: 89.451 kg Allergies Allergy/AdvReac Type Severity Reaction Status Date / Time No Known Allergies Allergy Verified 03/13/24 19:43 Medications Home Medications Medication Instructions Recorded Confirmed Last Taken prenat.vits,martínez,fab-orui-byazu 1 tab PO DAILY 10/29/21 03/14/24 03/12/24 21:00 Active Medications Generic Name Dose Route Start Last Admin Trade Name Freq PRN Reason Stop Dose Admin Oxytocin 30 units in 500 mls @ 8 mls/hr 03/14/24 07:59 03/14/24 11:00 Pitocin 30 Units/Nss IV 03/16/24 07:58 0.48 units/hr .Q24H PRN 8 mls/hr Labor Induction/Augmentation Titration Protocol 0.48 UNITS/HR Lactated Ringer's 1,000 mls @ 125 mls/hr 03/14/24 07:59 03/14/24 11:50 Lr IV 03/16/24 07:58 125 mls/hr .Q8H PRN Infusion L&D Protocol Protocol Past Medical History Medical History (Updated 03/14/24 @ 09:01 by Leonel Pearce MD) Varicella vaccine care following vaginal delivery Unfavorable cervix in term Placental abnormality Supervision of normal intrauterine in primigravida Past Family History Family History Father Hemochromatosis Grandfather (Paternal) Cardiac arrest Myocardial infarction Denies family history of Ovarian cancer Prostate cancer Breast cancer Colorectal cancer Past Surgical History Surgical History H/O foot surgery S/P tonsillectomy Social History Smoking Status: Never smoker Do You Dip or Chew Tobacco: No Hx Alcohol Use: No Hx Substance Use: No substance use type: does not use Physical Exam Vital Signs Last Vital Signs Temp 36.9 C 03/14/24 11:10 Pulse 97 H 03/14/24 12:24 Resp 20 03/14/24 11:10 BP 103/57 L 03/14/24 12:24 Pulse Ox 100 03/14/24 12:24 Testing Laboratory Results 03/14/24 08:11
[2024-03-14] MEDS ORDERED: NALBUPHINE HCL INJ 10 MG/ML AMP IV PRN (12:29)
[2024-03-14] MEDS ORDERED: BUPIVACAINE 0.25% PF 30 ML VIAL EPI PRN (12:29)
[2024-03-14] MEDS: fentaNYL citrate PF 100 MCG/2 ML VIAL ONE (12:29)
[2024-03-14] MEDS ORDERED: LIDOCAINE 2% MPF LOCAL 5 ML VIAL EPI PRN (12:29)
[2024-03-14] MEDS: SODIUM CHLORIDE 0.9% PF INJ 10 ML VIAL ONE (12:29)
[2024-03-14] MEDS: BUPIVACAINE 0.25% PF 30 ML VIAL ONE (12:29)
[2024-03-14] MEDS ORDERED: ROPIVACAINE 0.5% PF 5 MG/ML 20 ML VIAL EPI PRN (12:29)
[2024-03-14] MEDS ORDERED: diphenhydrAMINE 50 MG/ML VIAL IV PRN (12:29)
[2024-03-14] MEDS ORDERED: fentaNYL citrate PF 100 MCG/2 ML VIAL EPI PRN (12:29)
[2024-03-14] MEDS ORDERED: NALOXONE HCL 1 MG in SODIUM CHLORIDE 0.9% 1,000 ML IV PRN (12:29)
[2024-03-14] MEDS ORDERED: SODIUM CHLORIDE 0.9% PF INJ 10 ML VIAL EPI PRN (12:29)
[2024-03-14] MEDS ORDERED: ePHEDrine sulfate 50 MG/ML AMP IV PRN (12:29)
[2024-03-14] MEDS ORDERED: NALOXONE HCL 0.4 MG/1 ML VIAL/CARP IV PRN (12:29)
[2024-03-14] MEDS: PENICILLIN GK 3 MU in DEXTROSE 5% 100 ML IV PRN (13:08)
[2024-03-14] MEDS: fentANYL 2 MCG/ML BUPIVacaine 0.125%-NSS 100ML BAG EPI PRN (17:05)
[2024-03-14] MEDS ORDERED: bisacodyL 10 MG SUPP PR PRN (17:36)
[2024-03-14] MEDS ORDERED: ACETAMINOPHEN 325 MG TAB PO PRN (17:36)
[2024-03-14] MEDS ORDERED: HYDROCORTISONE ACETATE 25 MG SUPP PR PRN (17:36)
--- NOTE | 2024-03-14 17:41 | Delivery Summary ---
Vaginal Delivery Summary Date of Service March 14, 2024 Vaginal Delivery Summary and 1st Degree LAC Progressed to 10 cm dilated, 100% effaced and +2 station and pushed over intact perineum with epidural anesthesia. Head of the delivered without difficulty quickly followed by shoulders and body. was noted to be vigorous upon delivery and a 1 minute delayed cord clamping was initiated. Cord was then double clamped and cut and cord blood obtained. Attention was turned deliver the placenta which delivered intact three-vessel cord with gentle cord traction. Inspection of perineum vagina cervix there is noted to be a first- degree perineal laceration which repaired with 3-0 Vicryl in continuous running stitch. Needle sponge and instrument counts are correct at completion of the case. Both mother and stable in the immediate post delivery period. No complications noted and blood loss per QBL in chart [facility] Vaginal Delivery Charge Delivery Type Details: and 1st Degree LAC
--- NOTE | 2024-03-14 18:52 | Anesthesia Procedure Note ---
Date of Service March 14, 2024 Anesthesia Post Epidural Note Vital Signs Vital Signs: Temp Pulse Resp BP Pulse Ox 37.1 C 83 18 108/54 L 100 03/14/24 15:08 03/14/24 18:44 03/14/24 16:00 03/14/24 18:44 03/14/24 17:19 Pain Intensity Bilateral Abdomen: Pain Intensity: 0 Notes Mental Status: alert / awake / arousable Nausea / Vomiting: adequately controlled Pain: adequately controlled Airway Patency, RR, SpO2: stable & adequate BP & HR: stable & adequate Hydration State: stable & adequate Neuraxial Anesthesia: was administered and sensory block is resolving Anesthetic Complications: no major complications apparent and Pt Satisfied with anesthetic care Epidural: Removed without complications and With tip intact
[2024-03-14] MEDS: IBUPROFEN 600 MG TAB PO PRN (21:16)
[2024-03-14] MEDS: DOCUSATE SODIUM 100 MG CAP PO SCH (21:16)
[2024-03-15] MEDS: DIPHTHER/TETAN/PERTUS Vaccine (Tdap, Adol/Adult) 0.5mL IM ONE (07:34)
--- NOTE | 2024-03-15 07:39 | Obstetrical Progress Note ---
Date of Service March 15, 2024 Assessment & Plan (1) Vaginal delivery: Plan: Both mom and baby doing well. Discharge today as per protocol. F/U 6 weeks in Ob clinic. Admission and Anticipated Discharge Date Admission Date: March 14, 2024 Supervising Physician Co-Signing Physician Notes Patient seen with resident and agree with the above findings and plan. Stable for discharge. Subjective 1st PPD Day following with Laceration in 28 years at week 41+4 POG. No active complains Both mom and baby doing well. Pain: Mild, intermittent Lochia: Moderate Diet: Regular Ob diet Gas: passing gas Peeing: Normal, no bladder distension Ambulation: Normally Review of Systems Review of Systems: No SOB, chest pain, leg pain No dizziness, headache, palpitation No Blurring of vision , fever Physical Exam Physical Exam: General: Alert and oriented. No acute distress. CVS: S1 S2+ No murmurs, regular rhythm. Respiratory: CTA bilaterally. No rhonchi, wheezes, or crackles. No increased wor k of breathing. Abdomen: Bowel sound +. Soft, nontender Uterus: Fundus firm and palpable few cm below the umbilicus. Lower extremities: No LE edema. No deep calf pain. Results & Data Vital Signs (Past 12 Hours) Vital Signs Temp Pulse Pulse Resp BP Pulse Ox O2 Del Method 03/15/24 03:15 37.1 C 76 16 101/62 97 Room Air 03/14/24 23:56 36.8 C 68 18 102/60 98 Room Air 03/14/24 21:00 37.0 C 86 18 105/65 97 Room Air Resident Activity Tracking Resident Involvement: Resident Care Provided Care Provided: OB Delivery
[2024-03-15] MEDS: PRENATAL VITAMIN 1 TAB PO SCH (08:49)
[2024-03-15] MEDS: FERROUS SULFATE 325 MG TAB PO SCH (08:49)
[2024-03-15] MEDS: ePHEDrine sulfate 50 MG/ML AMP ONE (11:29)
[2024-03-15] MEDS: fentaNYL citrate PF 100 MCG/2 ML VIAL EPI STA (11:29)
[2024-03-15] MEDS: BUPIVACAINE 0.25% PF 30 ML VIAL EPI STA (11:29)
[2024-03-15] MEDS: LIDOCAINE 2%/EPINEPHRINE 1:200,000 20 ML PF EPI STA (11:30)
[2024-03-15] MEDS: SODIUM CHLORIDE 0.9% PF INJ 10 ML VIAL EPI STA (11:30)
[2024-03-15] MEDS: BENZOCAINE 20% SPRY 85 APPLN/85 GM CAN EXT PRN (12:32)
[2024-03-15 15:09] VITALS: PULSE 76
[2024-03-15 17:17] VITALS: BP 104/65; RESP 18; TEMP 98.6; O2SAT 99
[2024-03-15] MEDS ORDERED: bisacodyL 5 MG TABEC PO SCH (20:00)
== END 2024-03-15 18:35 | disposition home or self-care (01) | DRG 807 ==
LOC: 4S1 07:50 → 4E2 20:01